=== PATIENT | female | born 1965 | race Caucasian/White ===

== ENCOUNTER 2024-07-07 14:18 | Emergency (ER) | payer OTHER, SELFPAY ==
--- NOTE | ~2024-07-07 | XR_ITS ---
XR abdomen obstructive series Ordering provider: Spencer Elizabeth APRN History: . Constipation . Comparison: March 07, 2014 FINDINGS: BOWEL: Nonobstructive bowel gas pattern. ORGANOMEGALY: None. SIGNIFICANT PATHOLOGIC CALCIFICATIONS: None. Calcification seen in the pelvis are most likely phleb olith's. OTHER: No free air is seen under the diaphragm. IMPRESSION: NO ACUTE ABDOMINAL FINDINGS. Reviewed, dictated and finalized at location A.
[2024-07-07 14:31] VITALS: BP 158/85; PULSE 67; RESP 18; TEMP 36.3; O2SAT 96
--- NOTE | 2024-07-07 14:34 | ED.ABDPAIN ---
HPI - Abdominal Pain General Chief Complaint: Abdominal Pain <Spencer Elizabeth APRN - Last Filed: 07/07/24 14:35> Stated Complaint: constipated, sx 1 mos ago at [facility] <Spencer Elizabeth APRN - Last Filed: 07/07/24 14:35> Time Seen by Provider: 07/07/24 16:35 <Spencer Elizabeth APRN - Last Filed: 07/07/24 14:35> 59-year-old female presents with right upper quadrant abdominal pain that radiates to to right flank. Patient states this went on for 2 days. Associated constipation nausea vomiting. GENERAL: Well-appearing, well-nourished, and in no acute distress. HEAD: Normocephalic, atraumatic. EYES: PERRLA and EOMI. ENT: Nares clear, no rhinorrhea or epistaxis. Mucous membranes moist. NECK: Supple. CHEST: Clear to auscultation. No respiratory distress. HEART: Regular rate and rhythm. No murmur heard. Normal peripheral pulses. ABDOMEN: Soft, right upper quadrant, right flank pain EXTREMITIES: Normal range of motion. No edema. SKIN: Warm, dry, no rash. NEURO: No focal deficits. Alert and oriented x3. PSYCH: Normal mood and affect. <Spencer Elizabeth APRN - Last Filed: 07/07/24 14:35> History of Present Illness HPI narrative: Patient reports regular use of laxatives and is having peanut butter like stools. She has been having some cramping is concerned that she could still have a bowel obstruction which was treated surgically in [place]. She has no bloating. No vomiting. She is passing gas. She has been having cramping in the abdomen And radiates the right. No dysuria but has been having urinary urgency with incontinence. <José Kaur MD - Last Filed: 07/07/24 17:21> Related Data Allergies/Adverse Reactions: Allergies Allergy/AdvReac Type Severity Reaction Status Date / Time No Known Allergies Allergy Unverified 03/07/14 10:48 <Spencer Elizabeth APRN - Last Filed: 07/07/24 14:35> Review of Systems Review of Systems: All systems reviewed & are unremarkable except as noted in HPI and below <José Kaur MD - Last Filed: 07/07/24 17:21> Constitutional: Constitutional: Reports no additional constitutional complaints <José Kaur MD - Last Filed: 07/07/24 17:21> Cardiovascular: Cardiovascular: Reports no additional cardiovascular complaints <José Kaur MD - Last Filed: 07/07/24 17:21> Respiratory: Respiratory: Reports no additional respiratory complaints <José Kaur MD - Last Filed: 07/07/24 17:21> Gastrointestinal: Gastrointestinal: Reports no additional gastrointestinal complaints <José Kaur MD - Last Filed: 07/07/24 17:21> Genitourinary: Genitourinary: Reports nocturia, Denies dysuria, Reports flank pain and Reports urinary incontinence <José Kaur MD - Last Filed: 07/07/24 17:21> Musculoskeletal: Musculoskeletal: Reports no additional musculoskeletal complaints <José Kaur MD - Last Filed: 07/07/24 17:21> PMFSH Past Medical History Medical History: Medical History (Updated 07/07/24 @ 17:18 by José Kaur MD) Bipolar disorder Bowel obstruction <Spencer Elizabeth APRN - Last Filed: 07/07/24 14:35> Surgical History Surgical History: Surgical History (Updated 07/07/24 @ 17:17 by José Kaur MD) H/O lysis of adhesions History of appendectomy <Spencer Elizabeth APRN - Last Filed: 07/07/24 14:35> Exam Narrative: GENERAL: Well-appearing, well-nourished, and in no acute distress. HEAD: Normocephalic, atraumatic. ENT: Mucous membranes moist. CHEST: Clear to auscultation. No respiratory distress. HEART: Regular rate and rhythm. Normal peripheral pulses. ABDOMEN: Soft, nontender, nondistended, normal active bowel sounds. EXTREMITIES: Normal range of motion. No edema. SKIN: Warm, dry, no rash. well-healing surgical scars NEURO: Alert and oriented x3. PSYCH: Normal mood and affect. <José Kaur MD - Last Filed: 07/07/24 17:21> Course Course Emergency Course: I
[2024-07-07 15:52] LABS: Basophils Absolute Auto 0.1 K/mm3 (0.0-0.1); Basophils Percent Auto 0.7 % (0.2-1.2); Eosinophils Absolute Auto 0.1 K/mm3 (0-0.3); Eosinophils Percent Auto 1.3 % (0-4.4); Hematocrit 31.3 % (37.0-47.0); Hemoglobin 9.9 g/dL (12.0-15.0); Immature Granulocyte Absolute 0.16 K/mm3 (0.00-0.031); Immature Granulocyte Percent A 2.2 % (0-0.5); Lymphocytes Absolute Auto 2.36 K/mm3 (0.9-3.2); Lymphocytes Percent Auto 32.8 % (18.3-44.2); Mean Corpuscular HGB Conc 31.6 g/dl (32-36); Mean Corpuscular Hemoglobin 30.4 pg (26-34); Mean Platelet Volume 10.3 fl (7.4-10.4); Monocytes Absolute Auto 0.6 K/mm3 (0.1-0.6); Monocytes Percent Auto 8.2 % (2.6-8.5); Neutrophils Absolute Auto 3.9 K/mm3 (1.3-6.7); Neutrophils Percent Auto 54.8 % (45.5-73.1); Platelet Count Result 254 k/mm3 (150-375); Red Blood Count 3.26 M/mm3 (4.2-5.4); Red Cell Distribution Width 15.1 % (11.5-14.5); White Blood Count 7.2 K/mm3 (4.5-10.0)
[2024-07-07 15:56] LABS: Add Urine Microscopic? YES; Appearance Urine Cloudy (Clear); Bacteria Urine 4+ /hpf; Bilirubin Urine Negative (Negative); Blood Urine Negative (Negative); Color Urine Yellow (Yellow); Glucose Urine UA Negative (Negative); Ketones Urine Negative (Negative); Leukocyte Esterase Ur 1+ LEU/UL (Negative); Nitrate Urine Negative (Negative); Non Pathogenic Casts 0-2; Protein Urine Negative (Negative); RBC Urine 0-2 /hpf (0-2); Specific Grav Ur 1.018 (1.001-1.035); Squamous Epithelial Cell Urine None Seen /hpf (Few); WBC Urine 21-50 /hpf (0-3)
[2024-07-07 16:02] LABS: Alanine Aminotransferase 38 U/L (6-35); Albumin Level 4.1 g/dL (3.5-5.1); Alkaline Phosphatase 102 U/L (38-126); Anion Gap 8 mmol/L (4-12); Aspartate Amino Transferase 37 U/L (14-36); Bilirubin,Total 0.4 mg/dL (0.2-1.3); Blood Urea Nitrogen 18 mg/dL (7-17); Carbon Dioxide 28 mmol/L (22-30); Chloride 103 mmol/L (98-107); Estimated CRCL calculation 44 ml/min; Estimated Glomerular Filt Rate 46; Glucose 89 mg/dL (65-110); Lipase 124 U/L (23-300); Potassium 4.2 mmol/L (3.4-5.0); Sodium 139 mmol/L (137-145)
== END 2024-07-07 17:21 | disposition home or self-care (01) ==
PROVIDERS: Nurse Practitioner Family; Emergency Provider Emergency Medicine; PCP Internal Medicine
DX: N39.0 Urinary tract infection, site not specified (principal)
CPT/HCPCS: 36415; 74019; 80053; 81001; 83690; 85025; 87086; 87186; 99283

== ENCOUNTER 2024-07-19 00:44 | Emergency (ER) | payer OTHER, SELFPAY ==
[2024-07-19] VITALS (13 sets, daily range): BP systolic 106–146; BP diastolic 58–64; PULSE 58–77; RESP 12–19; TEMP 36.8; O2SAT 97–100
--- NOTE | 2024-07-19 01:47 | PC.NURSE ---
This RN informed ERP of patients symptoms and how uncomfortable patient was with itching.
--- NOTE | 2024-07-19 01:59 | ED.ALLEREA ---
HPI - Allergic Reaction General Chief complaint: Allergic Reaction Stated complaint: RLQ pain, rash, redness, itching, facial edema Time Seen by Provider: 07/19/24 01:55 Source: patient, family (daughter), EMS and RN notes reviewed Mode of arrival: EMS Limitations: no limitations History of Present Illness HPI narrative: Patient presents with a rash. She has been taking it for 1 week as prescribed by her merry go round attendant for chronic constipation. Can not recall their name but they are across from [facility]. 2 days ago she stopped taking it because she started to develop a rash/hives all over her body. Her daughter gave her 25mg diphenhydramine earlier today and EMS administered IV 50mg en route. No new bedding, food, clothes, soaps, detergents, etc. No chest pain, SOB, nausea/vomiting. Her body feels warm and she has had facial swelling. She has been scratching so much she started to bleed in some areas. Patient had initially told RN she had RLQ abdominal pain as well. When asked for more details on this, patient discusses other issues. She is eventually able to state that this pain is chronic. Patient states she lost 4 lbs in 2 weeks while on Ensure. Her last bowel movement was Friday and she had a large stool. History of intestinal blockage and a hernia in her abdomen. Her primary complaint at this time is itching. Related Data Allergies Allergy/AdvReac Type Severity Reaction Status Date / Time No Known Allergies Allergy Verified 07/19/24 00:53 [facility] Past Medical History Medical History Bipolar disorder Bowel obstruction Surgical History Surgical History H/O lysis of adhesions History of appendectomy Social History Social History (Updated 07/19/24 @ 03:56 by Yoon Porter MD) Occupation/Education: unemployed Exam Narrative: GENERAL: Chronically ill-appearing, in moderate acute distress. HEAD: Normocephalic, atraumatic. Alopecia EYES: Non injected, non icteric ENT: Nares clear, no rhinorrhea or epistaxis. NECK: Supple. CHEST: Speaking in full sentences. No respiratory distress. Lungs clear. HEART: Regular rate and rhythm. . ABDOMEN: Soft, nondistended. EXTREMITIES: Normal range of motion. No lower extremity edema. SKIN: Warm, dry. DIffuse erythematous rash over bilateral arms > legs that is warm to the touch. No blisters/bullous areas. Hives cover patient's neck and upper back. Some areas of excoriation. NEURO: No focal deficits. Alert and oriented x3. PSYCH: Normal mood and affect. Course Vital Signs Vital signs: Vital Signs Temperature 98.2 F 07/19/24 00:45 Pulse Rate 77 07/19/24 00:45 Respiratory Rate 19 07/19/24 00:45 Blood Pressure 146/64 H 07/19/24 00:45 Pulse Oximetry 100 07/19/24 00:45 Oxygen Delivery Room Air 07/19/24 00:45 Temperature 98.2 F 07/19/24 00:45 Pulse Rate 60 07/19/24 04:07 Respiratory Rate 16 07/19/24 04:07 Blood Pressure 106/58 L 07/19/24 04:07 Pulse Oximetry 98 07/19/24 04:07 Oxygen Delivery Room Air 07/19/24 00:51 MDM - Allergic Reaction MDM Narrative Medical decision making narrative: Patient presents with a diffuse/generalized erythematous itchy rash with areas of urticaria. Patient has been on Linzess for approximately 1 week when she developed these symptoms. No other antigens identified. Has already received PO Benadryl at home and IV 50mg en route from EMS. In the emergency department she is afebrile with vital signs notable for very mild hypertension. Patient given large dose steroid, famotidine, and Atarax; the latter unlikely to help with the actual physiologic process itself but to aid with the generalized sensation of itching. She had mentioned RLQ abdominal pain to RN but it seems there are no acute changes to her chronic pain. Did successfully have a large bowel movement on Friday. Aside from dermatologic findings, there does not appear to be a second organ system thus not anaphylaxis and will defer anaphylaxis. Patient reassessed after some time and she states she is feeling better. Discharged with Rx for diphenhydramine and steroid PO. Advised to tell her merry go round attendant that she had this reaction. Discharged in stable condition with daughter. Differential Diagnosis Differential diagnosis: Likely anaphylaxis, allergic reaction, contact dermatitis, adverse reaction to drug, viral enanthem, urticaria and other (hypersensitive reaction) Discharge Plan Discharge Clinical Impression: Allergic reaction, Urticaria, Adverse reaction to drug Patient Disposition: Home, Self-Care Condition: Stable Instructions: Antibiotic Form, Urticaria (ED), General Allergic Reaction (ED) Additional Instructions: you can continue use the diphenhydramine / Benadryl in addition to the other medication as prescribed. the short course of steroid should also help and it is best if you take this before 9:00 a.m. otherwise you may have difficulty sleeping at night. calamine lotion may also provide some relief in addition to cool compresses and oatmeal bath. Follow-up with primary care physician. Return to the emergency department with any new or worsening symptoms. Discuss your reaction with her merry go round attendant. Prescriptions: New diphenhydramine HCl [Allergy (diphenhydramine)] 25 mg capsule 25 mg PO TID PRN (Reason: allergic reaction) Qty: 20 0RF famotidine 20 mg tablet 20 mg PO DAILY Qty: 10 0RF prednisone 20 mg tablet 40 mg PO DAILY 5 Days Qty: 10 0RF Rx Instructions: take before 9am if possible Calamine Clear 1-0.1 % lotion 1 applic topical QID PRN (Reason: skin irritation) Qty: 177 0RF No Action cephalexin 500 mg capsule 500 mg PO Q12H Qty: 14 0RF Follow-up/Referrals: Gal,MD Baldemar [Primary Care Provider] - Time of Disposition: 03:55
[2024-07-19] MEDS: FAMOTIDINE 20 MG TABLET PO (02:17)
[2024-07-19] MEDS: hydrOXYzine HCL 25 MG TABLET PO (02:17)
[2024-07-19] MEDS: methylPREDNISolone SOD SUCC 125 MG VIAL IV PUSH (02:17)
--- NOTE | 2024-07-19 02:54 | PC.NURSE ---
Patient states its not as bad but it is still there and it itches. Patient ambulates to the bathroom with a steady gait.
== END 2024-07-19 04:10 | disposition home or self-care (01) ==
PROVIDERS: Emergency Provider Student in an Organized Health Care Education/Training Program; PCP Internal Medicine
DX: L50.0 Allergic urticaria (principal); T50.905A Adverse effect of unspecified drugs, medicaments and biological substances, initial encounter; F31.9 Bipolar disorder, unspecified
CPT/HCPCS: 96374; 99284; A9270; J2919